=== PATIENT | female | born 1975 | race Two or more races ===

== ENCOUNTER 2017-02-04 13:52 | Emergency (ER) | payer SELFPAY ==
[~2017-02-04] VITALS: Ht 167.6 cm; Wt 78.0 kg
[2017-02-04 14:02] VITALS: BP 155/80
[2017-02-04] MEDS ORDERED: DEXAMETHASONE 10MG/ML 1ML VIAL IM ONE (15:45)
[2017-02-04] MEDS ORDERED: DEXAMETHASONE 2MG TABLET PO ONE (15:45)
[2017-02-04] MEDS ORDERED: VISCOUS LIDOCAINE 2% 15 ML UDC MM PRN (15:45)
== END 2017-02-04 16:30 | disposition home or self-care (01) ==
LOC: ER 13:53
DX: J02.0 Streptococcal pharyngitis (principal); H92.02 Otalgia, left ear; H66.92 Otitis media, unspecified, left ear; I10 Essential (primary) hypertension; R13.10 Dysphagia, unspecified; Z98.890 Other specified postprocedural states
CPT/HCPCS: 87070; 87430; 96372; 99284; J1100; 99283; J8540

== ENCOUNTER 2019-04-13 08:41 | Emergency (ER) | payer MEDICAID ==
[~2019-04-13] VITALS: Ht 160 cm; Wt 77.0 kg
[2019-04-13] MEDS ORDERED: LIDOCAINE HCL 1% 20ML VIAL (Pyxis) INJ INFIL ONE (11:00)
[2019-04-13 14:30] VITALS: BP 121/78
== END 2019-04-13 15:20 | disposition home or self-care (01) ==
LOC: ER 08:41
DX: N75.1 Abscess of Bartholin's gland (principal); R10.2 Pelvic and perineal pain; Z90.49 Acquired absence of other specified parts of digestive tract
CPT/HCPCS: 56420; 99284; J3490; Z7610